=== PATIENT | female | born 1940 | race Caucasian/White ===

== ENCOUNTER 2019-10-16 05:33 | Inpatient (IN) ==
[2019-10-11 14:52] LABS: Apearance,Urine CLEAR (Clear); Bilirubin,Urine Negative (Negative); Blood, Urine Negative (Negative); Glucose,Urine (UA) Negative (Negative); Ketones,Urine Negative (Negative); Mucus,Urine Occasional /LPF (Occasional); Nitrite,Urine Negative (Negative); Protein,Urine 30 MG/DL; RBC,Urine 1 /HPF (0-4); Squamous Epithelial Cell,Urine Occasional /HPF (0-10); Urine Color Yellow (Yellow); Urine Urobilinogen < 2.0 EU/DL (0.2-1.0); WBC,Urine 15 /HPF (0-6)
[2019-10-11 15:08] LABS: Basophils # 0.1 10*3/uL (0.0-0.2); Basophils % 0.7 % (0.0-0.8); Eosinophils # 0.1 10*3/uL (0.0-0.87); Eosinophils % 1.3 % (0.00-10.9); Hematocrit 45.7 VOL% (35.7-47.0); Hemoglobin 14.4 GM/DL (12.0-16.0); Immature Granulocytes % 0.3 %; Immature Granulocytes Absolute 0.02 #; Lymphocytes # 1.5 10*3/uL (1.4-4.0); Lymphocytes % 19.5 % (21.3-54.2); Mean Corpuscular HGB Conc 31.5 GM/DL (32-36); Mean Corpuscular Volume 90.7 FL (87-102); Mean Platelet Volume 10.9 FL (9.6-12.0); Monocytes % 7.3 % (1.7-12.7); Neutrophils % 70.9 % (38.7-73.9); Platelet Count 209 T/CUMM (130-400); Red Blood Count 5.04 MC/CUMM (3.8-5.5); White Blood Count 7.6 T/CUMM (4-12)
[2019-10-11 15:32] LABS: Bilirubin,Total 0.6 MG/DL (0.2-1.0); Calcium 8.8 MG/DL (8.5-10.1); Osmolality,Calculated 285.5 MOS/KG (273-304); Total Protein 7.8 G/DL (6.4-8.3)
[2019-10-11 15:43] LABS: PT Patient Result 10.6 SECS (9.8-11.9); Partial Thromboplastin Time 29.5 SECS (23.9-33.8)
[2019-10-16] MEDS ORDERED: VANCOMYCIN INJ 1,000 MG in SODIUM CHLORIDE 0.9% 250 ML IV ONE (06:00)
[2019-10-16] MEDS ORDERED: CLINDAMYCIN INJ 900 MG in PREMIX 1 EACH IV ONE (06:00)
[2019-10-16] MEDS ORDERED: LACTATED RINGERS 1,000 ML IV SCH (08:00)
[2019-10-16] MEDS ORDERED: CLINDAMYCIN INJ 50 ML IV ONE (08:25)
[2019-10-16] MEDS ORDERED: VANCOMYCIN 1,000 MG VIAL ONE (08:25)
[2019-10-16] MEDS ORDERED: TRANEXAMIC ACID 1,000 MG/10 ML VIAL ONE ×2 (09:12→09:15)
[2019-10-16] MEDS ORDERED: BACITRACIN OINT 0.9 GM PACK TOP ONE (09:12)
[2019-10-16] MEDS ORDERED: BUPIVACAINE SPINAL 0.75% 2 ML AMP SPINAL ONE (09:34)
[2019-10-16] MEDS ORDERED: DEXAMETHASONE 4 MG/1 ML VIAL ONE ×2 (09:34→12:32)
[2019-10-16] MEDS ORDERED: ROPIVACAINE 0.5% 30 ML VIAL ONE (09:34)
[2019-10-16] MEDS ORDERED: ZALEPLON 5 MG CAPSULE PO PRN (10:27)
[2019-10-16] MEDS ORDERED: MAGNESIUM HYDROXIDE SUSP 30 ML UDCUP PO PRN (10:27)
[2019-10-16] MEDS ORDERED: MORPHINE 4 MG/1 ML VIAL IV PRN ×2 (10:27)
[2019-10-16] MEDS ORDERED: DEXTROSE 50% 25 GM/50 ML VIAL IV PRN (10:29)
[2019-10-16] MEDS ORDERED: GLUCAGON 1 MG VIAL IM PRN (10:29)
[2019-10-16] MEDS: INSULIN LISPRO 100 UNIT/ML SUBCUT SCH ×3 (11:50→21:20)
[2019-10-16] MEDS ORDERED: SUGAMMADEX 200 MG/2 ML VIAL IV ONE (11:51)
[2019-10-16] MEDS ORDERED: SEVOFLURANE 1 UNIT/15 MINUTE INH ONE (12:32)
[2019-10-16] MEDS ORDERED: HYDROmorphone 2 MG/1 ML VIAL ONE (12:32)
[2019-10-16] MEDS ORDERED: propofoL 200 MG/20 ML VIAL IV ONE (12:32)
[2019-10-16] MEDS ORDERED: fentaNYL 100 MCG/2 ML VIAL ONE (12:32)
[2019-10-16] MEDS ORDERED: ONDANSETRON 4 MG/2 ML VIAL ONE (12:32)
[2019-10-16] MEDS ORDERED: MIDAZOLAM 2 MG/2 ML VIAL ONE (12:32)
[2019-10-16] MEDS ORDERED: LIDOCAINE 2% 5 ML VIAL ONE (12:32)
[2019-10-16] MEDS ORDERED: PHENYLEPHRINE 1 MG/10 ML SYRINGE IV ONE (12:33)
[2019-10-16] MEDS ORDERED: LACTATED RINGERS 1,000 ML IV ONE (12:33)
[2019-10-16] MEDS ORDERED: ROCURONIUM 100 MG/10 ML VIAL IV ONE (12:33)
[2019-10-16] MEDS: LACTATED RINGERS 1,000 ML IV SCH ×2 (13:00→20:05)
[2019-10-16] MEDS: KETOROLAC 15 MG/1 ML VIAL IV SCH ×2 (14:31→20:05)
[2019-10-16] MEDS: CLINDAMYCIN INJ 900 MG in PREMIX 1 EACH IV SCH ×2 (14:56→23:12)
[2019-10-16] MEDS: ONDANSETRON 4 MG/2 ML VIAL IV PRN ×2 (17:10→21:22)
[2019-10-16] MEDS: ROSUVASTATIN 10 MG TABLET PO SCH (17:30)
[2019-10-16] MEDS: CIPROFLOXACIN 500 MG TABLET PO SCH (21:20)
[2019-10-16] MEDS: DOCUSATE SODIUM 100 MG CAPSULE PO SCH (21:21)
[2019-10-16] MEDS: carvediloL 3.125 MG TABLET PO SCH (21:21)
[2019-10-17] MEDS: KETOROLAC 15 MG/1 ML VIAL IV SCH ×2 (01:41→08:10)
[2019-10-17] MEDS: ONDANSETRON 4 MG/2 ML VIAL IV PRN ×2 (03:05→09:49)
[2019-10-17] MEDS: FONDAPARINUX 2.5 MG/0.5 ML SYRINGE SUBCUT SCH (05:12)
[2019-10-17 05:58] LABS: Basophils % 0.1 % (0.0-0.8); Hematocrit 37.8 VOL% (35.7-47.0); Immature Granulocytes % 0.4 %; Immature Granulocytes Absolute 0.05 #; Lymphocytes # 0.9 10*3/uL (1.4-4.0); Lymphocytes % 8.2 % (21.3-54.2); Mean Corpuscular HGB Conc 31.7 GM/DL (32-36); Mean Corpuscular Volume 90.9 FL (87-102); Mean Platelet Volume 10.4 FL (9.6-12.0); Monocytes % 9.9 % (1.7-12.7); Neutrophils % 81.4 % (38.7-73.9); Platelet Count 191 T/CUMM (130-400); Red Blood Count 4.16 MC/CUMM (3.8-5.5); Red Cell Distribution Width 14.2 % (9.3-17.3); White Blood Count 11.5 T/CUMM (4-12)
[2019-10-17 06:35] LABS: Calcium 7.8 MG/DL (8.5-10.1); Osmolality,Calculated 280.5 MOS/KG (273-304)
[2019-10-17] MEDS: LACTATED RINGERS 1,000 ML IV SCH (07:25)
[2019-10-17] MEDS: INSULIN LISPRO 100 UNIT/ML SUBCUT SCH ×4 (07:31→21:21)
[2019-10-17] MEDS: MULTIVITAMIN (CENTRUM) TABLET PO SCH (09:39)
[2019-10-17] MEDS: ASPIRIN EC 81 MG TABLET PO SCH (09:39)
[2019-10-17] MEDS: CIPROFLOXACIN 500 MG TABLET PO SCH ×2 (09:39→21:21)
[2019-10-17] MEDS: DOCUSATE SODIUM 100 MG CAPSULE PO SCH ×2 (09:40→21:21)
[2019-10-17] MEDS: carvediloL 3.125 MG TABLET PO SCH ×2 (09:40→21:21)
[2019-10-17] MEDS: LOSARTAN 50 MG TABLET PO SCH (09:40)
[2019-10-17] MEDS: CITALOPRAM 20 MG TABLET PO SCH (09:42)
[2019-10-17] MEDS: ROSUVASTATIN 10 MG TABLET PO SCH (17:02)
[2019-10-18 06:18] LABS: Basophils % 0.5 % (0.0-0.8); Eosinophils # 0.1 10*3/uL (0.0-0.87); Eosinophils % 1.6 % (0.00-10.9); Hematocrit 33.6 VOL% (35.7-47.0); Hemoglobin 10.1 GM/DL (12.0-16.0); Immature Granulocytes % 0.5 %; Immature Granulocytes Absolute 0.04 #; Lymphocytes # 1.5 10*3/uL (1.4-4.0); Lymphocytes % 17.6 % (21.3-54.2); Mean Corpuscular HGB Conc 30.1 GM/DL (32-36); Mean Corpuscular Volume 95.7 FL (87-102); Mean Platelet Volume 10.6 FL (9.6-12.0); Monocytes % 10.2 % (1.7-12.7); Neutrophils % 69.6 % (38.7-73.9); Platelet Count 168 T/CUMM (130-400); Red Blood Count 3.51 MC/CUMM (3.8-5.5); Red Cell Distribution Width 14.7 % (9.3-17.3); White Blood Count 8.6 T/CUMM (4-12)
[2019-10-18] MEDS: FONDAPARINUX 2.5 MG/0.5 ML SYRINGE SUBCUT SCH (06:22)
[2019-10-18 06:59] LABS: Hypochromasia 1+
[2019-10-18 07:00] LABS: Microcytosis Slight; Platelet Estimate Adequate
[2019-10-18] MEDS: INSULIN LISPRO 100 UNIT/ML SUBCUT SCH ×2 (09:03→11:34)
[2019-10-18] MEDS: ASPIRIN EC 81 MG TABLET PO SCH (09:05)
[2019-10-18] MEDS: carvediloL 3.125 MG TABLET PO SCH (09:05)
[2019-10-18] MEDS: LOSARTAN 50 MG TABLET PO SCH (09:05)
[2019-10-18] MEDS: CIPROFLOXACIN 500 MG TABLET PO SCH (09:05)
[2019-10-18] MEDS: MULTIVITAMIN (CENTRUM) TABLET PO SCH (09:05)
[2019-10-18] MEDS: DOCUSATE SODIUM 100 MG CAPSULE PO SCH (09:06)
[2019-10-18] MEDS: CITALOPRAM 20 MG TABLET PO SCH (09:06)
[2019-10-18 12:04] VITALS: BP 115/32
== END 2019-10-18 12:50 | disposition home health service (06) | DRG 470 ==
LOC: N.OR 05:33 → N.SDSINP 05:35 → N.3E 13:02
PROVIDERS: ADMIT Orthopaedic Surgery; ATTEND Orthopaedic Surgery

== ENCOUNTER 2021-11-08 16:29 | Observation (INO) ==
[2021-11-08] MEDS ORDERED: ONDANSETRON 4 MG/2 ML VIAL IV PRN (18:54)
[2021-11-08] MEDS ORDERED: GLUCAGON 1 MG VIAL IM PRN (18:54)
[2021-11-08] MEDS ORDERED: DEXTROSE 10% 250 ML BAG IV PRN (19:10)
[2021-11-08 19:33] LABS: Hematocrit 31.2 VOL% (35.7-47.0); Hemoglobin 9.9 GM/DL (12.0-16.0)
[2021-11-08] MEDS ORDERED: ACETAMINOPHEN 500 MG TABLET PO PRN (20:10)
[2021-11-08] MEDS: LACTATED RINGERS 1,000 ML IV SCH (20:44)
[2021-11-08] MEDS: PANTOPRAZOLE 40 MG VIAL IV SCH (20:44)
[2021-11-08] MEDS: carvediloL 3.125 MG TABLET PO SCH (20:44)
[2021-11-08] MEDS: ROSUVASTATIN 10 MG TABLET PO SCH (20:44)
[2021-11-08] MEDS ORDERED: DONEPEZIL 10 MG TABLET PO SCH (21:00)
[2021-11-08] MEDS: MELATONIN 3 MG TABLET PO PRN (21:03)
[2021-11-09] MEDS: MELATONIN 3 MG TABLET PO PRN ×2 (00:22→21:57)
[2021-11-09 02:46] LABS: Basophils # 0.1 10*3/uL (0.0-0.2); Basophils % 1.1 % (0.0-0.8); Eosinophils # 0.3 10*3/uL (0.0-0.87); Eosinophils % 3.5 % (0.00-10.9); Hematocrit 31.9 VOL% (35.7-47.0); Hemoglobin 9.9 GM/DL (12.0-16.0); Immature Granulocytes % 0.1 %; Immature Granulocytes Absolute 0.01 #; Lymphocytes # 2.7 10*3/uL (1.4-4.0); Mean Corpuscular Volume 92.2 FL (87-102); Mean Platelet Volume 11.9 FL (9.6-12.0); Monocytes # 0.6 10*3/uL (0.11-0.8); Monocytes % 8.1 % (1.7-12.7); Neutrophils % 50.2 % (38.7-73.9); Platelet Count 158 T/CUMM (130-400); Red Blood Count 3.46 MC/CUMM (3.8-5.5); Red Cell Distribution Width 13.3 % (9.3-17.3); White Blood Count 7.2 T/CUMM (4-12)
[2021-11-09 03:11] LABS: Albumin 3.1 G/DL (3.4-5.0); Bilirubin,Total 0.8 MG/DL (0.20-1.00); Calcium 9.2 MG/DL (8.5-10.1); Potassium 3.8 MMOL/L (3.5-5.1); Thyroid Stimulating Hormone 1.8 uIU/ml (0.358-3.74); Total Protein 5.9 G/DL (6.4-8.2)
[2021-11-09 03:33] LABS: Platelet Estimate Adequate
[2021-11-09] MEDS: LEVOTHYROXINE 50 MCG TABLET PO SCH (06:22)
[2021-11-09 07:14] LABS: Hematocrit 30.1 VOL% (35.7-47.0); Hemoglobin 9.4 GM/DL (12.0-16.0)
[2021-11-09] MEDS: LACTATED RINGERS 1,000 ML IV SCH ×2 (10:29→14:41)
[2021-11-09] MEDS: PANTOPRAZOLE 40 MG VIAL IV SCH ×2 (10:30→21:58)
[2021-11-09] MEDS: carvediloL 3.125 MG TABLET PO SCH ×2 (10:30→21:57)
[2021-11-09 13:41] LABS: Hematocrit 25.4 VOL% (35.7-47.0); Hemoglobin 7.7 GM/DL (12.0-16.0)
[2021-11-09] MEDS ORDERED: SODIUM CHLORIDE 0.9% 1,000 ML IV PRN (14:10)
[2021-11-09] MEDS: ROSUVASTATIN 10 MG TABLET PO SCH (21:57)
[2021-11-09] MEDS ORDERED: ALPRAZolam 0.5 MG TABLET PO ONE (23:30)
[2021-11-10 02:29] LABS: Hematocrit 35.6 VOL% (35.7-47.0)
[2021-11-10 02:30] LABS: Hemoglobin 11.3 GM/DL (12.0-16.0)
[2021-11-10 02:44] LABS: Calcium 9.2 MG/DL (8.5-10.1); Osmolality,Calculated 281.3 MOS/KG (273-304); Potassium 3.5 MMOL/L (3.5-5.1)
[2021-11-10 05:04] LABS: Basophils # 0.1 10*3/uL (0.0-0.2); Eosinophils # 0.3 10*3/uL (0.0-0.87); Eosinophils % 4.5 % (0.00-10.9); Hematocrit 35.8 VOL% (35.7-47.0); Hemoglobin 11.7 GM/DL (12.0-16.0); Immature Granulocytes % 0.3 %; Immature Granulocytes Absolute 0.02 #; Lymphocytes # 2.2 10*3/uL (1.4-4.0); Lymphocytes % 36.4 % (21.3-54.2); Mean Corpuscular HGB Conc 32.7 GM/DL (32-36); Mean Corpuscular Volume 87.1 FL (87-102); Mean Platelet Volume 10.6 FL (9.6-12.0); Monocytes # 0.6 10*3/uL (0.11-0.8); Monocytes % 9.8 % (1.7-12.7); Platelet Count 166 T/CUMM (130-400); Red Blood Count 4.11 MC/CUMM (3.8-5.5); Red Cell Distribution Width 14.2 % (9.3-17.3); White Blood Count 6.1 T/CUMM (4-12)
[2021-11-10] MEDS ORDERED: LEVOTHYROXINE 75 MCG TABLET PO SCH (06:00)
[2021-11-10] MEDS: LACTATED RINGERS 1,000 ML IV SCH ×3 (06:51→21:48)
[2021-11-10 07:53] LABS: Hematocrit 36.4 VOL% (35.7-47.0); Hemoglobin 11.7 GM/DL (12.0-16.0)
[2021-11-10] MEDS ORDERED: LACTATED RINGERS 1,000 ML IV SCH (09:22)
[2021-11-10] MEDS ORDERED: propofoL 200 MG/20 ML VIAL IV ONE (09:46)
[2021-11-10] MEDS ORDERED: LIDOCAINE 2% 5 ML VIAL ONE (09:46)
[2021-11-10] MEDS: carvediloL 3.125 MG TABLET PO SCH ×2 (10:03→21:47)
[2021-11-10] MEDS: PANTOPRAZOLE 40 MG VIAL IV SCH ×2 (10:03→21:47)
[2021-11-10] MEDS: ROSUVASTATIN 10 MG TABLET PO SCH (21:46)
[2021-11-10] MEDS: MELATONIN 3 MG TABLET PO PRN (21:47)
[2021-11-11] MEDS: LEVOTHYROXINE 50 MCG TABLET PO SCH (05:09)
[2021-11-11 08:39] VITALS: BP 148/52
[2021-11-11] MEDS: carvediloL 3.125 MG TABLET PO SCH (08:41)
[2021-11-11] MEDS: PANTOPRAZOLE 40 MG VIAL IV SCH (08:41)
[2021-11-11 08:49] LABS: Hematocrit 36.8 VOL% (35.7-47.0)
[2021-11-11] MEDS: LACTATED RINGERS 1,000 ML IV SCH (10:03)
[2021-11-12] MEDS ORDERED: LEVOTHYROXINE 75 MCG TABLET PO SCH (06:00)
== END 2021-11-11 11:16 | disposition home or self-care (01) ==
LOC: N.5E → SUATTDRO 18:02
PROVIDERS: ADMIT Internal Medicine; ATTEND Family Medicine

== ENCOUNTER 2021-11-12 19:15 | Observation (INO) ==
[2021-11-12 21:44] LABS: Basophils # 0.1 10*3/uL (0.0-0.2); Basophils % 0.6 % (0.0-0.8); Eosinophils # 0.4 10*3/uL (0.0-0.87); Eosinophils % 4.7 % (0.00-10.9); Hematocrit 36.7 VOL% (35.7-47.0); Immature Granulocytes % 0.3 %; Immature Granulocytes Absolute 0.02 #; Lymphocytes # 2.1 10*3/uL (1.4-4.0); Lymphocytes % 26.2 % (21.3-54.2); Mean Corpuscular HGB Conc 32.7 GM/DL (32-36); Mean Corpuscular Volume 86.2 FL (87-102); Mean Platelet Volume 10.8 FL (9.6-12.0); Monocytes # 0.8 10*3/uL (0.11-0.8); Monocytes % 10.5 % (1.7-12.7); Neutrophils % 57.7 % (38.7-73.9); Platelet Count 173 T/CUMM (130-400); Red Blood Count 4.26 MC/CUMM (3.8-5.5); Red Cell Distribution Width 13.9 % (9.3-17.3); White Blood Count 7.9 T/CUMM (4-12)
[2021-11-12 22:00] LABS: Albumin 3.2 G/DL (3.4-5.0); Bilirubin,Total 0.9 MG/DL (0.20-1.00); Calcium 9.4 MG/DL (8.5-10.1); Osmolality,Calculated 286.7 MOS/KG (273-304); Potassium 3.2 MMOL/L (3.5-5.1); Total Protein 6.2 G/DL (6.4-8.2)
[2021-11-12 23:20] LABS: PT Patient Result 10.9 SECS (10.1-12.1); Partial Thromboplastin Time 26.1 SECS (23.7-32.9)
[2021-11-12] MEDS ORDERED: SODIUM CHLORIDE 0.9% 1,000 ML IV STA (23:59)
[2021-11-13] MEDS ORDERED: GLUCAGON 1 MG VIAL IM PRN (00:36)
[2021-11-13] MEDS ORDERED: ZALEPLON 5 MG CAPSULE PO PRN (00:36)
[2021-11-13] MEDS ORDERED: hydrALAZINE 20 MG/1 ML VIAL IV PRN (00:36)
[2021-11-13] MEDS ORDERED: guaiFENesin/DM ER 600-30 MG TABLET PO PRN (00:36)
[2021-11-13] MEDS ORDERED: ACETAMINOPHEN 325 MG TABLET PO PRN (00:36)
[2021-11-13] MEDS ORDERED: NICOTINE 21 MG/24 HR PATCH TRANSDERM PRN (00:36)
[2021-11-13] MEDS ORDERED: ONDANSETRON 4 MG/2 ML VIAL IV PRN (00:36)
[2021-11-13] MEDS ORDERED: diphenhydrAMINE CAP 25 MG CAPSULE PO PRN (00:36)
[2021-11-13] MEDS ORDERED: DEXTROSE 10% 250 ML BAG IV PRN (01:07)
[2021-11-13] MEDS ORDERED: POTASSIUM CHLORIDE 20 MEQ TABLET PO ONE (01:30)
[2021-11-13] MEDS: PANTOPRAZOLE 40 MG VIAL IV SCH ×2 (01:35→10:00)
[2021-11-13 05:42] LABS: Basophils # 0.1 10*3/uL (0.0-0.2); Basophils % 0.7 % (0.0-0.8); Eosinophils # 0.4 10*3/uL (0.0-0.87); Eosinophils % 5.5 % (0.00-10.9); Hematocrit 34.9 VOL% (35.7-47.0); Hemoglobin 11.4 GM/DL (12.0-16.0); Immature Granulocytes % 0.3 %; Immature Granulocytes Absolute 0.02 #; Lymphocytes # 1.9 10*3/uL (1.4-4.0); Lymphocytes % 27.8 % (21.3-54.2); Mean Corpuscular HGB Conc 32.7 GM/DL (32-36); Mean Platelet Volume 10.7 FL (9.6-12.0); Monocytes # 0.8 10*3/uL (0.11-0.8); Monocytes % 12.1 % (1.7-12.7); Neutrophils % 53.6 % (38.7-73.9); Platelet Count 159 T/CUMM (130-400); Red Blood Count 4.01 MC/CUMM (3.8-5.5); White Blood Count 6.7 T/CUMM (4-12)
[2021-11-13 05:55] LABS: Osmolality,Calculated 286.7 MOS/KG (273-304); Potassium 3.6 MMOL/L (3.5-5.1)
[2021-11-13] MEDS ORDERED: LEVOTHYROXINE 50 MCG TABLET PO SCH (06:00)
[2021-11-13] MEDS ORDERED: LOSARTAN 50 MG TABLET PO SCH (09:00)
[2021-11-13 16:19] VITALS: BP 146/57
[2021-11-13] MEDS ORDERED: metroNIDAZOLE 500 MG TABLET PO SCH (21:00)
== END 2021-11-13 16:47 | disposition home or self-care (01) ==
LOC: N.ED 19:15 → N.EDINP 19:15 → SUATTDRO 11-13 00:36 → N.5E 11-13 02:08
PROVIDERS: ADMIT Family Medicine; ATTEND Family Medicine